=== PATIENT | female | born 1950 | race Caucasian/White ===

== ENCOUNTER 2020-06-02 01:09 | Outpatient (CLI) | payer MEDICARE, SELFPAY ==
[2020-06-02 19:19] LABS: SARS-CoV-2 RNA PCR Negative
== END 2020-06-02 01:10 | disposition home or self-care (01) ==
LOC: ANHCOVIDDT 01:10
PROVIDERS: PCP Family Medicine; Visit Provider Internal Medicine Gastroenterology
DX: Z01.818 Encounter for other preprocedural examination (principal); Z11.59 Encounter for screening for other viral diseases
CPT/HCPCS: 87635; C9803; U0003

== ENCOUNTER 2020-06-04 01:24 | Day surgery (SDC) | payer MEDICARE, SELFPAY ==
[2020-05-28 12:48] VITALS: BMI 24.5
[2020-06-04 07:47] VITALS: BP 123/69; PULSE 66; RESP 21; TEMP 36.5; O2SAT 98; BMI 25.5
[2020-06-04] MEDS: LACTATED RINGERS 1,000 ML 150 ML IV CONT (07:53)
--- NOTE | 2020-06-04 07:54 | WPDANESEPPF ---
Anes - Initial Pre Proc Eval Procedure: Operation Date: 06/04/20 08:30 Proposed Procedures p Screening Colonoscopy - Abdirizak Martínez MD Date/Time: 06/04/20 07:54 Surgeon: Abdirizak Martínez MD Pre Op Diagnosis: Neoplasm Screening Patient Data Age: 69 Gender: F Height: 1.63 m Weight: 67.6 kg Last Vital Signs Temp 36.5 C 06/04/20 07:47 Pulse 66 06/04/20 07:47 Resp 21 H 06/04/20 07:47 BP 123/69 06/04/20 07:47 Pulse Ox 98 06/04/20 07:47 Allergies Allergy/AdvReac Type Severity Reaction Status Date / Time No Known Allergies Allergy Unverified 06/04/20 07:36 Home Medications Medication Instructions Recorded Confirmed Type Adult One Daily Multivitamin 1 ea PO DAILY 05/28/20 05/28/20 History alendronate 70 mg PO DAILY 05/28/20 05/28/20 History amlodipine 2.5 mg PO DAILY 05/28/20 05/28/20 History ergocalciferol (vitamin D2) 1,250 mcg PO WEEKLY 05/28/20 05/28/20 History levothyroxine 100 mcg PO DAILY 05/28/20 05/28/20 History lisinopril 20 mg PO DAILY 05/28/20 05/28/20 History sertraline 25 mg PO DAILY 05/28/20 05/28/20 History Patient hx anesthesia problems: none Family hx anesthesia problems: none PMFSH Past Medical History Medical History (Updated 06/04/20 @ 07:56 by Jerzy Paulino MD) HTN (hypertension) Hypothyroidism Family History Family History (Updated 02/09/17 @ 23:56 by DOCTOR UNKNOWN) Mother Family history of diabetes mellitus in first degree relative Family history of congestive heart failure, Onset Age: 84 Patient's mother is Sibling Colon polyp Father Family history of coronary artery disease, Onset Age: 85 Patient's father is Other Diabetes mellitus Family history of arthritis Family history of cardiovascular disease Hypertension Social History Social History Smoking status: Never smoker Alcohol intake: never Anes - Eval Final PreProcedure Day of Procedure 06/04/20 07:54 Patient weight: overweight Heart: regular rate and rhythm Lungs: clear to auscultation and normal air movement Airway: Mallampati scale class II Neurological: alert and oriented Last oral intake: >/= 8 hours ASA classification: II Emergent: no Anesthetic plan: proceed Anesthesia type and monitoring: general GIVS Informed Consent: The patient's anesthetic plan and its attendant risks and benefits were discussed with the patient/family/POA. Questions were solicited and answers provided to the satisfaction of the patient/family/POA.
--- NOTE | 2020-06-04 08:16 | WPDGICN ---
Assessment and Plan Assessment and plan (1) Family history of colonic polyps: Code(s): Z83.71 - Family history of colonic polyps Status: Acute Assessment and Plan: Patient's sister has had colon polyps. Plans for patient have a surveillance exam of the colon at this time. Consider follow-up colonoscopy in 5 years or so. GI Consult Note Consult date/time: 06/04/20 08:16 HPI: Marina Quiñones is a 69 year old female seen in evaluation at the request of Dr Jensen Baird.. Patient presents for colonoscopy. Patient states that her current weight appetite bowel movements are normal. She denies abdominal pain. She denies any blood in her stools or weight has remained stable. Her last colonoscopy was 5 years ago. her sister is had colon polyps in the past. Review of Systems Review of Systems: All systems reviewed & are unremarkable except as noted in HPI and below PMFSH Past Medical History Medical History HTN (hypertension) Hypothyroidism Family History Family History Mother Family history of diabetes mellitus in first degree relative Family history of congestive heart failure, Onset Age: 84 Patient's mother is Sibling Colon polyp Father Family history of coronary artery disease, Onset Age: 85 Patient's father is Other Diabetes mellitus Family history of arthritis Family history of cardiovascular disease Hypertension Social History Social History Smoking status: Never smoker Alcohol intake: never Meds Home Medications and Allergies Home Medications Medication Instructions Recorded Confirmed Type Adult One Daily Multivitamin 1 ea PO DAILY 05/28/20 05/28/20 History alendronate 70 mg PO DAILY 05/28/20 05/28/20 History amlodipine 2.5 mg PO DAILY 05/28/20 05/28/20 History ergocalciferol (vitamin D2) 1,250 mcg PO WEEKLY 05/28/20 05/28/20 History levothyroxine 100 mcg PO DAILY 05/28/20 05/28/20 History lisinopril 20 mg PO DAILY 05/28/20 05/28/20 History sertraline 25 mg PO DAILY 05/28/20 05/28/20 History Allergies Allergy/AdvReac Type Severity Reaction Status Date / Time No Known Allergies Allergy Unverified 06/04/20 07:36 Vital Signs Vital Signs - 24 hr 06/04/20 07:47 Temperature 97.7 F Pulse Rate 66 Respiratory Rate 21 H Blood Pressure 123/69 Pulse Oximetry 98 Exam Narrative: Exam Narrative: Vital signs are stable. HEENT exam unremarkable. She is anicteric. Lungs are clear to auscultation and percussion. Heart is without murmur or extra sounds. Abdominal exam bowel sounds are present soft nontender with no hepatosplenomegaly. Digital external rectal exam is normal.
[2020-06-04 08:42] VITALS: BP 96/56; PULSE 66; RESP 19; O2SAT 96
[2020-06-04 08:52] VITALS: BP 99/61; PULSE 61; RESP 18; O2SAT 98
[2020-06-04 09:02] VITALS: BP 109/67; PULSE 62; RESP 17; O2SAT 97
== END 2020-06-04 09:13 | disposition home or self-care (01) ==
PROVIDERS: PCP Family Medicine; Visit Provider Internal Medicine Gastroenterology
PROC: 0DJD8ZZ Inspection of Lower Intestinal Tract, Via Natural or Artificial Opening Endoscopic (ICD-10-PCS; CPT 45378; principal; 2020-06-04 08:30)
DX: Z12.11 Encounter for screening for malignant neoplasm of colon (principal); K64.8 Other hemorrhoids; Z83.71 Family history of colonic polyps; I10 Essential (primary) hypertension; E03.9 Hypothyroidism, unspecified
CPT/HCPCS: G0105; J2704; J7120

== ENCOUNTER → 2020-11-11 12:14 | Outpatient (CLI) | payer MEDICARE, SELFPAY ==
--- NOTE | ~2020-11-11 | DEXA_ITS ---
Bone Density Report Name: Marina Quiñones Age: 70 Sex: Female Ethnicity: White Date of : 1950 Indication: osteopenia; height loss; postmenopausal Referring Provider: Alexis, Breana Study: Bone densitometry was performed. Exam Date: November 11, 2020 Accession number: [id number] Bone Density: Region BMD T-score Z-score Classification AP Spine (L1-L4) 0.959 -0.8 1.2 Normal Femoral Neck (Left) 0.611 -2.1 -0.4 Osteopenia Total Hip (Left) 0.804 -1.1 0.3 Osteopenia Femoral Neck (Right) 0.646 -1.8 -0.1 Osteopenia Total Hip (Right) 0.775 -1.4 0.0 Osteopenia Total Hip Mean 0.790 -1.3 0.2 Osteopenia World Health Organization criteria for BMD impression classify patients as: Normal (T-score at or above -1.0), Osteopenia (T-score between -1.0 and -2.5), or Osteoporosis (T-score at or below -2.5). 10-year Fracture Risk(1): Major Osteoporotic Fracture 12% Hip Fracture 2.2% Reported Risk Factors: [place] (), Neck BMD=0.611, BMI=28.8 (1) FRAX(R) Version 3.08. Fracture probability calculated for an untreated patient. Fracture probability may be lower if the patient has received treatment. Previous Exams: Region Exam Age BMD T-score BMD Change BMD Change Date g/cm2 vs Baseline vs Previous AP Spine(L1-L4) 11/11/2020 70 0.959 -0.8 -0.012 0.028* 07/17/2018 68 0.931 -1.1 -0.040* 0.023* 06/12/2016 65 0.908 -1.3 -0.063* -0.032* 05/20/2014 63 0.940 -1.0 -0.031* -0.020 05/17/2012 61 0.960 -0.8 -0.011 0.000 04/22/2010 59 0.960 -0.8 -0.011 -0.007 04/10/2008 57 0.967 -0.7 -0.004 -0.004 04/04/2006 55 0.971 -0.7 Total Hip(Left) 11/11/2020 70 0.804 -1.1 -0.092* 0.036* 07/17/2018 68 0.768 -1.4 -0.128* -0.063* 06/12/2016 65 0.831 -0.9 -0.065* 0.028* 05/20/2014 63 0.803 -1.1 -0.094* 0.012 05/17/2012 61 0.791 -1.2 -0.105* -0.021 04/22/2010 59 0.812 -1.1 -0.085* 0.023 04/10/2008 57 0.788 -1.3 -0.108* -0.108* 04/04/2006 55 0.897 -0.4 Total Hip(Right) 11/11/2020 70 0.775 -1.4 -0.130* 0.014 07/17/2018 68 0.762 -1.5 -0.144* -0.099* 06/12/2016 65 0.861 -0.7 -0.045* 0.023 05/20/2014 63 0.838 -0.9 -0.067* -0.005 05/17/2012 61 0.843 -0.8 -0.063* 0.011 04/22/2010 59 0.831 -0.9 -0.074* 0.006 04/10/2008 57 0.826
--- NOTE | ~2020-11-11 | MM_ITS ---
EXAMINATION: MM screening [facility] BI w maxx HISTORY: Screening mammogram TECHNIQUE: Craniocaudal and mediolateral oblique 3-D tomosynthesis images were obtained and synthetic 2-D images were generated. CAD analysis was submitted and interpreted. COMPARISON: 09/30/2019, 07/21/2018, 07/05/2017 BREAST PARENCHYMAL COMPOSITION: There are scattered areas of fibroglandular density. FINDINGS: There is no evidence of suspicious mass, calcification, or architectural distortion to sugg est malignancy in either breast. There has been no suspicious interval change. IMPRESSION: 1. No mammographic evidence of malignancy. 2. Recommend routine screening mammography in one year. BI-RADS Category 1: Negative Reviewed, dictated and finalized at location A. E UP ARTIST
== END ==
PROVIDERS: PCP Family Medicine; Visit Provider Nurse Practitioner
DX: Z12.31 Encounter for screening mammogram for malignant neoplasm of breast (principal); Z78.0 Asymptomatic menopausal state; M85.852 Other specified disorders of bone density and structure, left thigh; M85.851 Other specified disorders of bone density and structure, right thigh
CPT/HCPCS: 77063; 77067; 77080

== ENCOUNTER → 2022-02-07 13:38 | Outpatient (CLI) | payer MEDICARE, SELFPAY ==
--- NOTE | ~2022-02-07 | MM_ITS ---
EXAMINATION: MM screening [facility] BI w maxx HISTORY: Screening TECHNIQUE: Craniocaudal and mediolateral oblique 3-D tomosynthesis images were obtained and synthetic 2-D images were generated. CAD analysis was submitted and interpreted. COMPARISON: Comparison to multiple prior studies sequentially, with oldest reviewed study dated 07/05. BREAST PARENCHYMAL COMPOSITION: There are scattered areas of fibroglandular density. FINDINGS: There is no evidence of suspicious mass, calcification, or architectural distortion to sugg est malignancy in either breast. There has been no suspicious interval change. IMPRESSION: 1. No mammographic evidence of malignancy. 2. Recommend routine screening mammography in one year. BI-RADS Category 1: Negative Reviewed, dictated and finalized at location A.
== END ==
PROVIDERS: PCP Family Medicine; Visit Provider Nurse Practitioner
DX: Z12.31 Encounter for screening mammogram for malignant neoplasm of breast (principal)
CPT/HCPCS: 77063; 77067

== ENCOUNTER → 2022-12-25 11:05 | Outpatient (CLI) | payer MEDICARE, OTHER, SELFPAY ==
--- NOTE | ~2022-12-25 | DEXA_ITS ---
Bone Density Report Name: PORTILLO MCKINNON Age: 72 Sex: Female Ethnicity: White Date of : 1950 Indication: osteopenia; height loss; prior fracture; postmenopausal Referring Provider: Alexis, Breana Study: Bone densitometry was performed. Exam Date: December 25, 2022 Accession number: [id number] Bone Density: Region BMD T-score Z-score Classification AP Spine (L1-L4) 0.951 -0.9 1.3 Normal Femoral Neck (Right) 0.644 -1.8 0.0 Osteopenia Total Hip (Right) 0.767 -1.4 0.1 Osteopenia World Health Organization criteria for BMD impression classify patients as: Normal (T-score at or above -1.0), Osteopenia (T-score between -1.0 and -2.5), or Osteoporosis (T-score at or below -2.5). 10-year Fracture Risk: FRAX not reported because: Prior hip or vertebral fracture Previous Exams: Region Exam Age BMD T-score BMD Change BMD Change Date g/cm2 vs Baseline vs Previous AP Spine(L1-L4) 12/25/2022 72 0.951 -0.9 -0.020 -0.008 11/11/2020 70 0.959 -0.8 -0.012 0.028* 07/17/2018 68 0.931 -1.1 -0.040* 0.023* 06/12/2016 65 0.908 -1.3 -0.063* -0.032* 05/20/2014 63 0.940 -1.0 -0.031* -0.020 05/17/2012 61 0.960 -0.8 -0.011 0.000 04/22/2010 59 0.960 -0.8 -0.011 -0.007 04/10/2008 57 0.967 -0.7 -0.004 -0.004 04/04/2006 55 0.971 -0.7 Total Hip(Right) 12/25/2022 72 0.767 -1.4 -0.138* -0.008 11/11/2020 70 0.775 -1.4 -0.130* 0.014 07/17/2018 68 0.762 -1.5 -0.144* -0.099* 06/12/2016 65 0.861 -0.7 -0.045* 0.023 05/20/2014 63 0.838 -0.9 -0.067* -0.005 05/17/2012 61 0.843 -0.8 -0.063* 0.011 04/22/2010 59 0.831 -0.9 -0.074* 0.006 04/10/2008 57 0.826 -1.0 -0.080* -0.080* 04/04/2006 55 0.905 -0.3 *Denotes significance at 95% confidence level, LSC for AP Spine = 0.022 g/cm2, LSC for Total Hip = 0.027 g/cm2 Clinical Information Provided by Patient: Have had a previous hip or vertebral fracture Has had a low trauma fracture Has used the following medications: Fosamax (i.e. alendronate), Vitamin D Patient maximum height was 64.5 Menopause Age: 52 Drinks caffeinated beverages Onset of menses at age 14 Number of children 2 Impression: The patient has low bone mass, based on the Right Femoral N
== END ==
PROVIDERS: PCP Family Medicine; Visit Provider Nurse Practitioner
DX: Z78.0 Asymptomatic menopausal state (principal); M85.89 Other specified disorders of bone density and structure, multiple sites
CPT/HCPCS: 77080

== ENCOUNTER → 2023-02-09 10:11 | Outpatient (CLI) | payer MEDICARE, OTHER, SELFPAY ==
--- NOTE | ~2023-02-09 | MM_ITS ---
EXAMINATION: MM screening [facility] BI w maxx HISTORY: Screening TECHNIQUE: Craniocaudal and mediolateral oblique 3-D tomosynthesis images were obtained and synthetic 2-D images were generated. CAD analysis was submitted and interpreted. COMPARISON: Comparison to multiple prior studies sequentially, with oldest reviewed study dated 07/05. BREAST PARENCHYMAL COMPOSITION: There are scattered areas of fibroglandular density. FINDINGS: There is no evidence of suspicious mass, calcification, or architectural distortion to sugg est malignancy in either breast. There has been no suspicious interval change. IMPRESSION: 1. No mammographic evidence of malignancy. 2. Recommend routine screening mammography in one year. BI-RADS Category 1: Negative Reviewed, dictated and finalized at location A.
== END ==
PROVIDERS: PCP Family Medicine; Visit Provider Nurse Practitioner
DX: Z12.31 Encounter for screening mammogram for malignant neoplasm of breast (principal)
CPT/HCPCS: 77063; 77067

== ENCOUNTER 2024-02-12 10:39 | Outpatient (CLI) | payer MEDICARE, OTHER, SELFPAY ==
--- NOTE | ~2024-02-12 | MM_ITS ---
EXAMINATION: MM screening [facility] BI w maxx HISTORY: Screening mammogram TECHNIQUE: Craniocaudal and mediolateral oblique 3-D tomosynthesis images were obtained and synthetic 2-D images were generated. CAD analysis was submitted and interpreted. COMPARISON: February 09, 2023, February 07, 2022 bilateral screening mammogram examinations BREAST PARENCHYMAL COMPOSITION: There are scattered areas of fibroglandular density. FINDINGS: There is no evidence of suspicious mass, calcification, or architectural distortion to sugg est malignancy in either breast. There has been no suspicious interval change. IMPRESSION: 1. No mammographic evidence of malignancy. 2. Recommend routine screening mammography in one year. BI-RADS Category 1: Negative Reviewed, dictated and finalized at location A.
== END 2024-02-12 10:40 ==
LOC: MICIMG 10:40
PROVIDERS: PCP Family Medicine; Visit Provider Nurse Practitioner
DX: Z12.31 Encounter for screening mammogram for malignant neoplasm of breast (principal)
CPT/HCPCS: 77063; 77067

== ENCOUNTER 2025-03-24 10:54 | Outpatient (CLI) | payer MEDICARE, SELFPAY ==
--- NOTE | ~2025-03-24 | MM_ITS ---
EXAMINATION: MM screening [facility] BI w maxx HISTORY: Screening TECHNIQUE: Craniocaudal and mediolateral oblique 3-D tomosynthesis images were obtained and synthetic 2-D images were generated. CAD analysis was submitted and interpreted. COMPARISON: Comparison to multiple prior studies sequentially, with oldest reviewed study dated 07/17. BREAST PARENCHYMAL COMPOSITION: Not dense: There are scattered areas of fibroglandular density. FINDINGS: There is no evidence of suspicious mass, calcification, or architectural distortion to sugg est malignancy in either breast. There has been no suspicious interval change. IMPRESSION: 1. No mammographic evidence of malignancy. 2. Recommend routine screening mammography in one year. BI-RADS Category 1: Negative Reviewed, dictated and finalized at location B.
== END 2025-03-24 10:55 | disposition home or self-care (01) ==
LOC: MICIMG 10:56
PROVIDERS: PCP Family Medicine; Visit Provider Obstetrics & Gynecology Gynecology
DX: Z12.31 Encounter for screening mammogram for malignant neoplasm of breast (principal)
CPT/HCPCS: 77063; 77067